=== PATIENT | male | born 1990 | race Two or more races ===

== ENCOUNTER 2019-04-26 13:40 | Emergency (ER) | payer MEDICAID, OTHER ==
[~2019-04-26] VITALS: Ht 165.1 cm; Wt 74.2 kg
[2019-04-26] MEDS ORDERED: ACETAMINOPHEN 325MG TABLET PO STA (15:52)
[2019-04-26] MEDS ORDERED: SODIUM CHLORIDE 0.9% 1,000 ML IV ONE (15:52)
[2019-04-26] MEDS ORDERED: ONDANSETRON 4MG ODT PO STA (15:52)
[2019-04-26] MEDS ORDERED: KETOROLAC 30MG/ML VIAL IV STA (15:52)
[2019-04-26 16:17] LABS: CHLORIDE 101 mEq/L (98-107)
[2019-04-26 16:19] LABS: HEMATOCRIT. 41.8 % (42.0-52.0); MEAN CORPUSCULAR HEMOGLOBIN 26.9 pg (28.0-32.0); MEAN PLATELET VOLUME 10.4 fl (7.4-10.4); PLATELET 178 x1000/uL (130-400); RED BLOOD CELL COUNT 5.22 mill/uL (4.7-6.1); RED CELL DISTRIBUTION WIDTH 14.8 % (11.6-14.6)
[2019-04-26 16:53] LABS: PLATELET ESTIMATE NORMAL
[2019-04-26 18:26] VITALS: BP 127/76
== END 2019-04-26 18:46 | disposition home or self-care (01) ==
LOC: ER 15:38
DX: J40 Bronchitis, not specified as acute or chronic (principal); R05 Cough; F12.10 Cannabis abuse, uncomplicated
CPT/HCPCS: 36415; 71046; 80053; 84484; 85025; 85379; 93005; 96374; 99284; J1885; J7030; Q0162; Z7610

== ENCOUNTER 2019-04-29 13:22 | Inpatient (IN) | payer OTHER ==
[~2019-04-29] VITALS: Ht 165.1 cm; Wt 70.8 kg
[2019-04-29] MEDS ORDERED: KETOROLAC 30MG/ML VIAL IV STA (15:47)
[2019-04-29] MEDS ORDERED: ONDANSETRON HCL 4MG/2ML INJ IV STA (15:47)
[2019-04-29] MEDS ORDERED: SODIUM CHLORIDE 0.9% 1,000 ML IV ONE (15:47)
[2019-04-29] MEDS ORDERED: MORPHINE SULFATE 4 MG/ML CPJ (NOT FOR IM USE) IV ONE (16:00)
[2019-04-29] MEDS ORDERED: LORAZEPAM 2MG/ML CPJ IV ONE (16:00)
[2019-04-29 16:25] LABS: HEMATOCRIT. 40.1 % (42.0-52.0); HEMOGLOBIN. 13.6 g/dL (14.0-18.0); MEAN CORPUSCULAR HEMOGLOBIN 26.9 pg (28.0-32.0); MEAN CORPUSCULAR VOLUME 79.4 fL (80.0-94.0); MEAN PLATELET VOLUME 9.1 fl (7.4-10.4); PLATELET 223 x1000/uL (130-400); RED BLOOD CELL COUNT 5.05 mill/uL (4.7-6.1); RED CELL DISTRIBUTION WIDTH 14.6 % (11.6-14.6)
[2019-04-29 16:28] LABS: CHLORIDE 97 mEq/L (98-107)
[2019-04-29] MEDS ORDERED: SODIUM CHLORIDE 0.9% 1000ML BAG (SEPSIS BOLUS) IV ONE (16:30)
[2019-04-29 16:31] LABS: INR 1.2; PROTHROMBIN TIME 12.1 sec (9.6-11.0)
[2019-04-29 16:32] LABS: ETHANOL BLOOD < 10 mg/dL
[2019-04-29 16:36] LABS: CREATINE KINASE 129 IU/L (39-308)
[2019-04-29 16:38] LABS: CREATINE KINASE MB FRACTION < 1.0 ng/mL (0.5-3.6)
[2019-04-29] MEDS ORDERED: LEVOFLOXACIN 500MG PREMIX 100 ML IV ONE (17:00)
[2019-04-29 17:05] LABS: CLARITY URINE CLEAR (CLEAR); COLOR URINE YELLOW (YELLOW); KETONES URINE 2+ (NEGATIVE); LEUKOCYTE ESTERASE URINE NEGATIVE (NEGATIVE); NITRITE URINE NEGATIVE (NEGATIVE); OCCULT BLOOD URINE 2+ (NEGATIVE); PROTEIN URINE 2+ (NEGATIVE); SPECIFIC GRAVITY URINE 1.015 (1.005-1.030); UROBILINOGEN URINE 0.2 E.U./dL (0.2-1.0)
[2019-04-29 17:09] LABS: PLATELET ESTIMATE NORMAL
[2019-04-29] MEDS ORDERED: VANCOMYCIN 1 G PREMIX 200 ML IV SCH (17:15)
[2019-04-29] MEDS ORDERED: OSELTAMIVIR 75MG CAPSULE PO ONE (17:30)
[2019-04-29 17:34] LABS: *AMPHETAMINES SCREEN URINE NEGATIVE (NEGATIVE); *BARBITURATES SCREEN URINE NEGATIVE (NEGATIVE); *BENZODIAZEPINES SCREEN URINE NEGATIVE (NEGATIVE); *COCAINE SCREEN URINE NEGATIVE (NEGATIVE); METHADONE URINE SCREEN NEGATIVE (NEGATIVE); OPIATES URINE SCREEN NEGATIVE (NEGATIVE)
[2019-04-29 17:35] LABS: CANNABINOID URINE SCREEN PRESUMTIVE POSITIVE (NEGATIVE); PHENCYCLIDINE URINE SCREEN NEGATIVE (NEGATIVE)
[2019-04-29 17:39] LABS: MONOTEST NEGATIVE (NEGATIVE)
[2019-04-29] MEDS ORDERED: IOHEXOL-350 100 ML BOTTLE ONE (18:51)
[2019-04-29 21:40] VITALS: BP 144/96
[2019-04-29] MEDS: ONDANSETRON HCL 4MG/2ML INJ IV PRN (23:01)
[2019-04-29] MEDS: ACETAMINOPHEN 325MG TABLET PO PRN (23:02)
[2019-04-29] MEDS ORDERED: GUAIFENESIN-DM 200MG-20MG/10ML UDC PO PRN (23:45)
[2019-04-30] VITALS: BP 130/90
[2019-04-30] MEDS: VANCOMYCIN 1500MG in DEXTROSE 5% WATER 250ML IV SCH ×2 (00:26→09:05)
[2019-04-30] MEDS: DEXT 5%/0.45% NACL KCL 20MEQ/L 1,000 ML IV SCH ×3 (00:26→16:09)
[2019-04-30] MEDS: HYDROCODONE/ACETAMINOPHEN 5/325MG TABLET PO PRN ×2 (00:46→09:19)
[2019-04-30] MEDS ORDERED: CEFTRIAXONE 1 G PREMIX 50 ML IV SCH (01:00)
[2019-04-30] MEDS: METRONIDAZOLE 500 MG PREMIX 100 ML IV SCH ×3 (02:53→18:33)
[2019-04-30 04:00] VITALS: BP 141/91
[2019-04-30] MEDS: ACETAMINOPHEN 325MG TABLET PO PRN ×3 (06:31→19:49)
[2019-04-30] MEDS: ONDANSETRON HCL 4MG/2ML INJ IV PRN ×2 (06:48→19:48)
[2019-04-30 06:55] LABS: CHLORIDE 103 mEq/L (98-107)
[2019-04-30 07:05] LABS: HEMATOCRIT. 37.2 % (42.0-52.0); HEMOGLOBIN. 12.4 g/dL (14.0-18.0); MEAN CORPUSCULAR VOLUME 80.9 fL (80.0-94.0); MEAN PLATELET VOLUME 8.9 fl (7.4-10.4); PLATELET 209 x1000/uL (130-400); RED BLOOD CELL COUNT 4.59 mill/uL (4.7-6.1); RED CELL DISTRIBUTION WIDTH 14.8 % (11.6-14.6)
[2019-04-30 07:39] VITALS: BP 122/82
[2019-04-30] MEDS: OSELTAMIVIR 75MG CAPSULE PO SCH ×2 (09:06→21:27)
[2019-04-30] MEDS: ONDANSETRON HCL 4MG/2ML INJ IV NR ×2 (11:13→15:59)
[2019-04-30 12:04] VITALS: BP 146/92
[2019-04-30 14:38] LABS: PLATELET ESTIMATE NORMAL
[2019-04-30] MEDS ORDERED: MORPHINE SULFATE 2 MG/ML CPJ (NOT FOR IM USE) IV NR (15:15)
[2019-04-30 16:16] VITALS: BP 132/86
[2019-04-30] MEDS: IPRATROPIUM/ALBUTEROL 0.5-3(2.5)MG/3ML NEB HHN PRN ×2 (18:14→20:04)
[2019-04-30 19:46] VITALS: BP 144/98
[2019-04-30] MEDS: VANCOMYCIN 1 G PREMIX 200 ML IV SCH (21:13)
[2019-05-01] VITALS: BP 131/95
[2019-05-01] MEDS: IPRATROPIUM/ALBUTEROL 0.5-3(2.5)MG/3ML NEB HHN PRN ×6 (00:06→21:23)
[2019-05-01] MEDS: HYDROCODONE/ACETAMINOPHEN 5/325MG TABLET PO PRN ×5 (00:41→20:37)
[2019-05-01] MEDS: METRONIDAZOLE 500 MG PREMIX 100 ML IV SCH ×3 (02:04→18:52)
[2019-05-01] MEDS: VANCOMYCIN 1 G PREMIX 200 ML IV SCH ×2 (03:04→08:22)
[2019-05-01] MEDS: CEFTRIAXONE 1 G PREMIX 50 ML IV SCH (03:04)
[2019-05-01 04:00] VITALS: BP 143/96
[2019-05-01] MEDS: ONDANSETRON HCL 4MG/2ML INJ IV PRN ×4 (05:14→20:37)
[2019-05-01 07:57] LABS: HEMATOCRIT. 34.5 % (42.0-52.0); HEMOGLOBIN. 11.7 g/dL (14.0-18.0); MEAN CORPUSCULAR VOLUME 79.3 fL (80.0-94.0); MEAN PLATELET VOLUME 8.5 fl (7.4-10.4); PLATELET 244 x1000/uL (130-400); RED BLOOD CELL COUNT 4.35 mill/uL (4.7-6.1); RED CELL DISTRIBUTION WIDTH 15.1 % (11.6-14.6)
[2019-05-01] MEDS: OSELTAMIVIR 75MG CAPSULE PO SCH ×2 (08:23→20:36)
[2019-05-01 08:28] VITALS: BP 140/94
[2019-05-01 09:20] LABS: PLATELET ESTIMATE NORMAL
[2019-05-01] MEDS: DEXT 5%/0.45% NACL KCL 20MEQ/L 1,000 ML IV SCH ×2 (09:38→18:49)
[2019-05-01 12:11] VITALS: BP 138/88
[2019-05-01] MEDS: METOCLOPRAMIDE HCL 10MG/2ML VIAL IV SCH ×3 (12:44→23:38)
[2019-05-01] MEDS: DOXYCYCLINE 100 MG in DEXT 5% WATER 100 ML IV SCH (16:00)
[2019-05-01 16:28] VITALS: BP 142/96
[2019-05-01 20:34] VITALS: BP 132/86
[2019-05-01] MEDS: ACETAMINOPHEN 325MG TABLET PO PRN (21:39)
[2019-05-01 22:31] LABS: BG BASE EXCESS 3.4 mmol/L (-2.0-2.0); BG CARBOXYHEMOGLOBIN 1.2 % (0.5-1.5); BG DEOXYHEMOGLOBIN 9.4 % (0.0-5.0); BG FRACTION INSPIRED OXYGEN 40; BG HCO3 ACT 27.5 mmol/L (22.0-26.0); BG METHEMOGLOBIN 0.2 % (0.0-1.5); BG OXYGEN SATURATION 90.5 % (92.0-98.5); BG OXYHEMOGLOBIN 89.2 % (94.0-97.0); BG PCO2 39.9 mmHg (35.0-45.0); BG PH 7.456 (7.350-7.450); BG PO2 58.3 mmHg (75.0-100.0); BG SAMPLE SITE RIGHT BRACHIAL; BG TOTAL HEMOGLOBIN 12.4 g/dL (12.0-18.0); BG VENT MODE NASAL CANNULA
[2019-05-02] VITALS (38 sets, daily range): BP systolic 48–184; BP diastolic 31–143
[2019-05-02] MEDS: DEXT 5%/0.45% NACL KCL 20MEQ/L 1,000 ML IV SCH ×2 (00:44→09:08)
[2019-05-02] MEDS: MORPHINE SULFATE 2 MG/ML CPJ (NOT FOR IM USE) IV PRN ×4 (00:44→15:40)
[2019-05-02] MEDS: CEFTRIAXONE 1 G PREMIX 50 ML IV SCH (00:45)
[2019-05-02] MEDS: IPRATROPIUM/ALBUTEROL 0.5-3(2.5)MG/3ML NEB HHN PRN ×4 (01:13→20:23)
[2019-05-02] MEDS: METRONIDAZOLE 500 MG PREMIX 100 ML IV SCH ×2 (01:35→09:53)
[2019-05-02] MEDS: DOXYCYCLINE 100 MG in DEXT 5% WATER 100 ML IV SCH ×2 (02:57→17:39)
[2019-05-02] MEDS: ONDANSETRON HCL 4MG/2ML INJ IV PRN ×2 (04:54→09:50)
[2019-05-02] MEDS: ACETAMINOPHEN 325MG TABLET PO PRN ×2 (05:30→11:48)
[2019-05-02] MEDS: METOCLOPRAMIDE HCL 10MG/2ML VIAL IV SCH ×3 (05:31→18:22)
[2019-05-02 07:20] LABS: HEMATOCRIT. 33.9 % (42.0-52.0); HEMOGLOBIN. 11.4 g/dL (14.0-18.0); MEAN CORPUSCULAR HEMOGLOBIN 26.6 pg (28.0-32.0); MEAN CORPUSCULAR VOLUME 79.2 fL (80.0-94.0); MEAN PLATELET VOLUME 8.9 fl (7.4-10.4); PLATELET 279 x1000/uL (130-400); RED BLOOD CELL COUNT 4.29 mill/uL (4.7-6.1); RED CELL DISTRIBUTION WIDTH 14.6 % (11.6-14.6)
[2019-05-02 08:20] LABS: CHLORIDE 97 mEq/L (98-107)
[2019-05-02] MEDS: OSELTAMIVIR 75MG CAPSULE PO SCH ×2 (09:08→21:00)
[2019-05-02] MEDS ORDERED: ACETAMINOPHEN 650MG SUPP PR PRN (13:15)
[2019-05-02] MEDS ORDERED: FUROSEMIDE 100MG/10ML VIAL IVP NR (13:30)
[2019-05-02 13:39] LABS: BG CARBOXYHEMOGLOBIN 0.6 % (0.5-1.5); BG DEOXYHEMOGLOBIN 1.4 % (0.0-5.0); BG FRACTION INSPIRED OXYGEN 100; BG HCO3 ACT 30.7 mmol/L (22.0-26.0); BG METHEMOGLOBIN 0.3 % (0.0-1.5); BG OXYGEN SATURATION 98.6 % (92.0-98.5); BG OXYHEMOGLOBIN 97.7 % (94.0-97.0); BG PCO2 44.9 mmHg (35.0-45.0); BG PH 7.453 (7.350-7.450); BG PO2 132.1 mmHg (75.0-100.0); BG SAMPLE SITE RIGHT BRACHIAL; BG TOTAL HEMOGLOBIN 12.8 g/dL (12.0-18.0); BG VENT MODE MASK - NRB
[2019-05-02] MEDS ORDERED: VECURONIUM BROMIDE 10 MG/VIAL IV ONE (14:08)
[2019-05-02] MEDS ORDERED: SODIUM CHLORIDE 0.9% 10ML VIAL ONE (14:08)
[2019-05-02] MEDS ORDERED: ETOMIDATE 2MG/ML 10ML VIAL IV ONE (14:08)
[2019-05-02 14:18] LABS: HEPATITIS B SURFACE ANTIGEN NEGATIVE
[2019-05-02] MEDS: PROPOFOL 10MG/ML 100ML 100 ML IV PRN ×3 (14:40→21:12)
[2019-05-02 14:42] LABS: HEPATITIS A AB IGM NEGATIVE (NEGATIVE)
[2019-05-02] MEDS ORDERED: HYDRALAZINE 20MG/ML VIAL IV PRN (15:00)
[2019-05-02 15:04] LABS: BG BASE EXCESS 4.7 mmol/L (-2.0-2.0); BG CARBOXYHEMOGLOBIN 0.1 % (0.5-1.5); BG DEOXYHEMOGLOBIN 0.7 % (0.0-5.0); BG FRACTION INSPIRED OXYGEN 100; BG HCO3 ACT 33.7 mmol/L (22.0-26.0); BG OXYGEN SATURATION 99.3 % (92.0-98.5); BG OXYHEMOGLOBIN 98.2 % (94.0-97.0); BG PCO2 71.1 mmHg (35.0-45.0); BG PH 7.293 (7.350-7.450); BG PO2 277.4 mmHg (75.0-100.0); BG SAMPLE SITE RIGHT RADIAL; BG TIDAL VOLUME(mL) 500 mL; BG TOTAL HEMOGLOBIN 14.2 g/dL (12.0-18.0); BG VENT MODE VENT - A/C; BG VENT RATE 14 set
[2019-05-02 15:46] LABS: PLATELET ESTIMATE NORMAL
[2019-05-02] MEDS: FENTANYL CITRATE/PF 500 MCG in SODIUM CHLORIDE 0.9% 40 ML IV PRN ×2 (15:57→18:13)
[2019-05-02] MEDS: PHENYLEPHRINE 10 MG in DEXT 5% WATER 249 ML IV PRN ×2 (17:30→20:02)
[2019-05-02] MEDS: LORAZEPAM 2MG/ML CPJ IV PRN (17:41)
[2019-05-02] MEDS: MEROPENEM 1,000 MG in SODIUM CHLORIDE 0.9% 100 ML IV SCH (20:19)
[2019-05-02] MEDS ORDERED: PHENYLEPHRINE 20 MG in DEXT 5% WATER 498 ML IV PRN (20:30)
[2019-05-03] VITALS (87 sets, daily range): BP systolic 74–117; BP diastolic 46–81
[2019-05-03] MEDS: IPRATROPIUM/ALBUTEROL 0.5-3(2.5)MG/3ML NEB HHN PRN ×5 (00:06→20:45)
[2019-05-03] MEDS: FENTANYL CITRATE/PF 500 MCG in SODIUM CHLORIDE 0.9% 40 ML IV PRN (00:25)
[2019-05-03] MEDS: MEROPENEM 1,000 MG in SODIUM CHLORIDE 0.9% 100 ML IV SCH ×3 (00:25→19:45)
[2019-05-03] MEDS: LORAZEPAM 2MG/ML CPJ IV PRN ×2 (00:26→07:23)
[2019-05-03] MEDS: METOCLOPRAMIDE HCL 10MG/2ML VIAL IV SCH ×5 (00:26→23:10)
[2019-05-03] MEDS: PROPOFOL 10MG/ML 100ML 100 ML IV PRN ×7 (00:50→23:10)
[2019-05-03] MEDS: PHENYLEPHRINE 40 MG in DEXT 5% WATER 496 ML IV PRN ×4 (01:26→14:06)
[2019-05-03] MEDS: DOXYCYCLINE 100 MG in DEXT 5% WATER 100 ML IV SCH ×2 (04:11→16:18)
[2019-05-03 05:13] LABS: HIV SCREEN 4G Non Reactive (Non Reactive)
[2019-05-03 05:36] LABS: HEMATOCRIT. 35.1 % (42.0-52.0); HEMOGLOBIN. 11.9 g/dL (14.0-18.0); MEAN CORPUSCULAR HEMOGLOBIN 26.8 pg (28.0-32.0); MEAN CORPUSCULAR VOLUME 79.3 fL (80.0-94.0); MEAN PLATELET VOLUME 9.1 fl (7.4-10.4); PLATELET 347 x1000/uL (130-400); RED BLOOD CELL COUNT 4.43 mill/uL (4.7-6.1)
[2019-05-03 05:48] LABS: CHLORIDE 96 mEq/L (98-107)
[2019-05-03] MEDS: FENTANYL CITRATE/PF 1,000 MCG in SODIUM CHLORIDE 0.9% 80 ML IV PRN ×2 (06:44→16:22)
[2019-05-03 07:04] LABS: PLATELET ESTIMATE NORMAL
[2019-05-03] MEDS: ACETAMINOPHEN 325MG TABLET PO PRN ×3 (07:35→22:29)
[2019-05-03 08:08] LABS: BG DEOXYHEMOGLOBIN 3.7 % (0.0-5.0); BG HCO3 ACT 32.8 mmol/L (22.0-26.0); BG METHEMOGLOBIN 0.2 % (0.0-1.5); BG OXYGEN SATURATION 96.3 % (92.0-98.5); BG OXYHEMOGLOBIN 96.1 % (94.0-97.0); BG PCO2 46.3 mmHg (35.0-45.0); BG PH 7.468 (7.350-7.450); BG PO2 85.4 mmHg (75.0-100.0); BG SAMPLE SITE RIGHT BRACHIAL; BG TIDAL VOLUME(mL) 500 mL; BG TOTAL HEMOGLOBIN 12.7 g/dL (12.0-18.0); BG VENT MODE VENT - A/C; BG VENT RATE 18 set
[2019-05-03] MEDS ORDERED: SODIUM CHLORIDE 0.9% 1000ML BAG (SEPSIS BOLUS) IV NR (08:30)
[2019-05-03] MEDS ORDERED: SODIUM CHLORIDE 0.9% 1,000 ML IV SCH (08:45)
[2019-05-03] MEDS: MIDODRINE HCL 5MG TABLET NG SCH ×3 (11:00→16:18)
[2019-05-03] MEDS: FAMOTIDINE 20MG/2ML VIAL IV SCH (11:01)
[2019-05-03] MEDS: ENOXAPARIN 40MG/0.4ML SYR SUBCUT SCH (11:01)
[2019-05-03] MEDS ORDERED: NOREPINEPHRINE 32 MG in DEXT 5% WATER 468 ML IV PRN (18:15)
[2019-05-04] VITALS (97 sets, daily range): BP systolic 86–142; BP diastolic 19–78
[2019-05-04] MEDS: MEROPENEM 1,000 MG in SODIUM CHLORIDE 0.9% 100 ML IV SCH ×3 (00:35→16:29)
[2019-05-04] MEDS: PHENYLEPHRINE 80 MG in DEXT 5% WATER 492 ML IV PRN ×2 (01:33→08:51)
[2019-05-04] MEDS: DOXYCYCLINE 100 MG in DEXT 5% WATER 100 ML IV SCH ×2 (03:05→15:07)
[2019-05-04] MEDS: PROPOFOL 10MG/ML 100ML 100 ML IV PRN ×6 (03:06→21:38)
[2019-05-04 05:16] LABS: HEMATOCRIT. 33.4 % (42.0-52.0); HEMOGLOBIN. 11.2 g/dL (14.0-18.0); MEAN CORPUSCULAR HEMOGLOBIN 26.5 pg (28.0-32.0); MEAN CORPUSCULAR VOLUME 78.7 fL (80.0-94.0); MEAN PLATELET VOLUME 8.5 fl (7.4-10.4); PLATELET 410 x1000/uL (130-400); RED BLOOD CELL COUNT 4.24 mill/uL (4.7-6.1)
[2019-05-04 05:32] LABS: CHLORIDE 100 mEq/L (98-107)
[2019-05-04] MEDS: METOCLOPRAMIDE HCL 10MG/2ML VIAL IV SCH ×3 (06:39→17:33)
[2019-05-04] MEDS: FENTANYL CITRATE/PF 1,000 MCG in SODIUM CHLORIDE 0.9% 80 ML IV PRN ×2 (06:40→21:29)
[2019-05-04] MEDS: ACETAMINOPHEN 325MG TABLET PO PRN ×3 (06:41→23:59)
[2019-05-04] MEDS: IPRATROPIUM/ALBUTEROL 0.5-3(2.5)MG/3ML NEB HHN PRN (08:33)
[2019-05-04 08:40] LABS: BG BASE EXCESS 6.6 mmol/L (-2.0-2.0); BG CARBOXYHEMOGLOBIN 0.3 % (0.5-1.5); BG DEOXYHEMOGLOBIN 3.4 % (0.0-5.0); BG FRACTION INSPIRED OXYGEN 40; BG HCO3 ACT 31.7 mmol/L (22.0-26.0); BG METHEMOGLOBIN 0.3 % (0.0-1.5); BG OXYGEN SATURATION 96.6 % (92.0-98.5); BG PCO2 47.4 mmHg (35.0-45.0); BG PH 7.443 (7.350-7.450); BG PO2 90.5 mmHg (75.0-100.0); BG SAMPLE SITE RIGHT RADIAL; BG TIDAL VOLUME(mL) 500 mL; BG TOTAL HEMOGLOBIN 11.6 g/dL (12.0-18.0); BG VENT MODE VENT - A/C; BG VENT RATE 16 set
[2019-05-04] MEDS: MIDODRINE HCL 5MG TABLET NG SCH ×3 (08:51→16:29)
[2019-05-04] MEDS: FAMOTIDINE 20MG/2ML VIAL IV SCH (08:51)
[2019-05-04] MEDS: ENOXAPARIN 40MG/0.4ML SYR SUBCUT SCH (08:52)
[2019-05-04] MEDS ORDERED: FUROSEMIDE 40MG/4ML VIAL IVP NR (13:00)
[2019-05-04 15:56] LABS: PLATELET ESTIMATE INCREASED
[2019-05-05] VITALS (73 sets, daily range): BP systolic 91–137; BP diastolic 31–91
[2019-05-05] MEDS: PROPOFOL 10MG/ML 100ML 100 ML IV PRN ×2 (01:19→04:33)
[2019-05-05] MEDS: DOXYCYCLINE 100 MG in DEXT 5% WATER 100 ML IV SCH ×2 (04:33→17:00)
[2019-05-05 05:42] LABS: HEMATOCRIT. 32.5 % (42.0-52.0); HEMOGLOBIN. 11.1 g/dL (14.0-18.0); MEAN CORPUSCULAR HEMOGLOBIN 26.6 pg (28.0-32.0); MEAN CORPUSCULAR VOLUME 78.3 fL (80.0-94.0); MEAN PLATELET VOLUME 8.4 fl (7.4-10.4); PLATELET 404 x1000/uL (130-400); RED BLOOD CELL COUNT 4.15 mill/uL (4.7-6.1); RED CELL DISTRIBUTION WIDTH 15.4 % (11.6-14.6)
[2019-05-05 05:43] LABS: CHLORIDE 98 mEq/L (98-107)
[2019-05-05 05:51] LABS: CREATINE KINASE 90 IU/L (39-308)
[2019-05-05] MEDS: ACETAMINOPHEN 325MG TABLET PO PRN ×3 (06:40→20:36)
[2019-05-05] MEDS: METOCLOPRAMIDE HCL 10MG/2ML VIAL IV SCH ×4 (06:40→17:14)
[2019-05-05 07:48] LABS: PLATELET ESTIMATE SLIGHTLY INCREASED
[2019-05-05 08:27] LABS: BG BASE EXCESS 14.9 mmol/L (-2.0-2.0); BG CARBOXYHEMOGLOBIN 0.3 % (0.5-1.5); BG DEOXYHEMOGLOBIN 2.6 % (0.0-5.0); BG FRACTION INSPIRED OXYGEN 40; BG METHEMOGLOBIN 0.3 % (0.0-1.5); BG OXYGEN SATURATION 97.4 % (92.0-98.5); BG OXYHEMOGLOBIN 96.8 % (94.0-97.0); BG PCO2 53.6 mmHg (35.0-45.0); BG PH 7.491 (7.350-7.450); BG PO2 115.5 mmHg (75.0-100.0); BG SAMPLE SITE RIGHT BRACHIAL; BG TIDAL VOLUME(mL) 500 mL; BG TOTAL HEMOGLOBIN 9.4 g/dL (12.0-18.0); BG VENT MODE VENT - A/C; BG VENT RATE 16 set
[2019-05-05] MEDS: FAMOTIDINE 20MG/2ML VIAL IV SCH (09:06)
[2019-05-05] MEDS: MIDODRINE HCL 5MG TABLET NG SCH ×3 (09:06→17:15)
[2019-05-05] MEDS: MEROPENEM 1,000 MG in SODIUM CHLORIDE 0.9% 100 ML IV SCH ×4 (09:06→17:15)
[2019-05-05] MEDS: ENOXAPARIN 40MG/0.4ML SYR SUBCUT SCH (09:06)
[2019-05-05 10:09] LABS: BG BASE EXCESS 8.3 mmol/L (-2.0-2.0); BG CARBOXYHEMOGLOBIN 0.4 % (0.5-1.5); BG DEOXYHEMOGLOBIN 4.4 % (0.0-5.0); BG FRACTION INSPIRED OXYGEN 40; BG HCO3 ACT 32.6 mmol/L (22.0-26.0); BG METHEMOGLOBIN 0.1 % (0.0-1.5); BG OXYGEN SATURATION 95.6 % (92.0-98.5); BG OXYHEMOGLOBIN 95.1 % (94.0-97.0); BG PCO2 44.1 mmHg (35.0-45.0); BG PH 7.487 (7.350-7.450); BG PO2 81.8 mmHg (75.0-100.0); BG PRESSURE SUPPORT 8; BG SAMPLE SITE RIGHT BRACHIAL; BG TOTAL HEMOGLOBIN 11.2 g/dL (12.0-18.0); BG VENT MODE VENT - CPAP
[2019-05-05] MEDS: IPRATROPIUM BROMIDE (0.02%) 0.5MG/2.5ML NEB HHN SCH ×3 (10:39→21:34)
[2019-05-05 10:58] LABS: CHLORIDE 97 mEq/L (98-107)
[2019-05-05] MEDS: MORPHINE SULFATE 2 MG/ML CPJ (NOT FOR IM USE) IV PRN (20:37)
[2019-05-06] VITALS (60 sets, daily range): BP systolic 106–140; BP diastolic 40–91
[2019-05-06] MEDS: METOCLOPRAMIDE HCL 10MG/2ML VIAL IV SCH ×2 (00:46→04:59)
[2019-05-06] MEDS: MEROPENEM 1,000 MG in SODIUM CHLORIDE 0.9% 100 ML IV SCH ×3 (00:46→16:42)
[2019-05-06] MEDS: MORPHINE SULFATE 2 MG/ML CPJ (NOT FOR IM USE) IV PRN ×4 (00:47→20:02)
[2019-05-06] MEDS: IPRATROPIUM BROMIDE (0.02%) 0.5MG/2.5ML NEB HHN SCH ×4 (02:40→21:10)
[2019-05-06] MEDS: DOXYCYCLINE 100 MG in DEXT 5% WATER 100 ML IV SCH ×2 (05:00→15:21)
[2019-05-06] MEDS: ACETAMINOPHEN 325MG TABLET PO PRN ×3 (05:02→22:06)
[2019-05-06 05:32] LABS: HEMATOCRIT. 32.3 % (42.0-52.0); HEMOGLOBIN. 11.1 g/dL (14.0-18.0); MEAN CORPUSCULAR HEMOGLOBIN 26.4 pg (28.0-32.0); MEAN CORPUSCULAR VOLUME 76.6 fL (80.0-94.0); MEAN PLATELET VOLUME 8.2 fl (7.4-10.4); PLATELET 472 x1000/uL (130-400); RED BLOOD CELL COUNT 4.21 mill/uL (4.7-6.1); RED CELL DISTRIBUTION WIDTH 14.4 % (11.6-14.6)
[2019-05-06 06:54] LABS: PLATELET ESTIMATE INCREASED
[2019-05-06] MEDS: ENOXAPARIN 40MG/0.4ML SYR SUBCUT SCH (08:37)
[2019-05-06] MEDS: FAMOTIDINE 20MG/2ML VIAL IV SCH (08:37)
[2019-05-06] MEDS: MIDODRINE HCL 5MG TABLET NG SCH ×3 (08:38→16:42)
[2019-05-06] MEDS ORDERED: FUROSEMIDE 40MG/4ML VIAL IVP NR (09:45)
[2019-05-06] MEDS ORDERED: POTASSIUM CHLORIDE 20MEQ TABLET SR PO SCH (10:00)
[2019-05-06] MEDS: DOCUSATE SODIUM 100MG CAPSULE PO SCH ×2 (13:48→16:42)
[2019-05-06] MEDS ORDERED: POTASSIUM CHLORIDE 20MEQ/PACKET PO NR (16:15)
[2019-05-06] MEDS: POTASSIUM CHLORIDE 8 MEQ TABLET.SA PO SCH (20:02)
[2019-05-07] VITALS (36 sets, daily range): BP systolic 102–144; BP diastolic 50–92
[2019-05-07] MEDS: MORPHINE SULFATE 2 MG/ML CPJ (NOT FOR IM USE) IV PRN ×5 (00:01→19:59)
[2019-05-07] MEDS: MEROPENEM 1,000 MG in SODIUM CHLORIDE 0.9% 100 ML IV SCH ×3 (00:01→21:52)
[2019-05-07] MEDS: ACETYLCYSTEINE 100MG/ML 10% VIAL 4ML INH SCH ×3 (02:10→15:15)
[2019-05-07] MEDS: IPRATROPIUM/ALBUTEROL 0.5-3(2.5)MG/3ML NEB HHN PRN (02:11)
[2019-05-07] MEDS: DOXYCYCLINE 100 MG in DEXT 5% WATER 100 ML IV SCH ×2 (04:50→20:05)
[2019-05-07 05:39] LABS: BASOPHILS % 0.3 % (0.0-2.0); EOSINOPHILS % 4.2 % (0.0-5.0); HEMATOCRIT. 34.7 % (42.0-52.0); LYMPHOCYTES % 10.6 % (20.0-50.0); MEAN CORPUSCULAR HEMOGLOBIN 26.9 pg (28.0-32.0); MEAN CORPUSCULAR VOLUME 77.6 fL (80.0-94.0); MEAN PLATELET VOLUME 8.3 fl (7.4-10.4); MONOCYTES % 7.6 % (2.0-8.0); NEUTROPHILS % 77.3 % (40.0-76.0); PLATELET 562 x1000/uL (130-400); RED BLOOD CELL COUNT 4.47 mill/uL (4.7-6.1)
[2019-05-07 05:48] LABS: CHLORIDE 100 mEq/L (98-107)
[2019-05-07 05:58] LABS: LDL CHOLESTEROL 100 mg/dL (5-100)
[2019-05-07 06:00] LABS: CREATINE KINASE MB FRACTION < 1.0 ng/mL (0.5-3.6)
[2019-05-07 06:01] LABS: HDL CHOLESTEROL 17 mg/dL (40-59)
[2019-05-07 06:11] LABS: CREATINE KINASE 67 IU/L (39-308)
[2019-05-07] MEDS: IPRATROPIUM BROMIDE (0.02%) 0.5MG/2.5ML NEB HHN SCH ×3 (08:51→21:00)
[2019-05-07] MEDS ORDERED: POTASSIUM CHLORIDE 20MEQ/PACKET PO SCH (09:00)
[2019-05-07] MEDS: MIDODRINE HCL 5MG TABLET NG SCH ×4 (09:00→17:00)
[2019-05-07] MEDS ORDERED: POTASSIUM CHLORIDE 20MEQ TABLET SR PO SCH (09:00)
[2019-05-07] MEDS ORDERED: FUROSEMIDE 40MG/4ML VIAL IVP SCH (09:00)
[2019-05-07] MEDS: POTASSIUM CHLORIDE 8 MEQ TABLET.SA PO SCH ×3 (09:01→17:50)
[2019-05-07] MEDS: FAMOTIDINE 20MG TABLET PO SCH (09:01)
[2019-05-07] MEDS: ENOXAPARIN 40MG/0.4ML SYR SUBCUT SCH (09:01)
[2019-05-07] MEDS: DOCUSATE SODIUM 100MG CAPSULE PO SCH ×2 (09:02→17:50)
[2019-05-07] MEDS: CARVEDILOL 3.125 MG TABLET PO SCH ×2 (13:01→21:52)
[2019-05-07 16:41] LABS: BASOPHILS % 0.5 % (0.0-2.0); EOSINOPHILS % 4.3 % (0.0-5.0); HEMATOCRIT. 35.8 % (42.0-52.0); HEMOGLOBIN. 12.4 g/dL (14.0-18.0); LYMPHOCYTES % 9.4 % (20.0-50.0); MEAN CORPUSCULAR HEMOGLOBIN 26.8 pg (28.0-32.0); MEAN CORPUSCULAR VOLUME 77.6 fL (80.0-94.0); MEAN PLATELET VOLUME 8.1 fl (7.4-10.4); MONOCYTES % 7.9 % (2.0-8.0); NEUTROPHILS % 77.9 % (40.0-76.0); PLATELET 598 x1000/uL (130-400); RED BLOOD CELL COUNT 4.61 mill/uL (4.7-6.1); RED CELL DISTRIBUTION WIDTH 14.9 % (11.6-14.6)
[2019-05-07 16:55] LABS: CHLORIDE 101 mEq/L (98-107)
[2019-05-08] VITALS (12 sets, daily range): BP systolic 104–131; BP diastolic 49–88
[2019-05-08] MEDS: ACETYLCYSTEINE 100MG/ML 10% VIAL 4ML INH SCH ×3 (01:50→15:56)
[2019-05-08] MEDS: IPRATROPIUM BROMIDE (0.02%) 0.5MG/2.5ML NEB HHN SCH ×4 (01:51→21:53)
[2019-05-08] MEDS: MEROPENEM 1,000 MG in SODIUM CHLORIDE 0.9% 100 ML IV SCH ×3 (03:20→17:24)
[2019-05-08] MEDS: MORPHINE SULFATE 2 MG/ML CPJ (NOT FOR IM USE) IV PRN ×3 (03:26→23:04)
[2019-05-08] MEDS: DOXYCYCLINE 100 MG in DEXT 5% WATER 100 ML IV SCH ×2 (05:46→18:46)
[2019-05-08 07:35] LABS: CHLORIDE 103 mEq/L (98-107)
[2019-05-08] MEDS: MIDODRINE HCL 5MG TABLET NG SCH (09:00)
[2019-05-08] MEDS: FAMOTIDINE 20MG TABLET PO SCH (09:45)
[2019-05-08] MEDS: FUROSEMIDE 40MG TABLET PO SCH (09:45)
[2019-05-08] MEDS: CARVEDILOL 3.125 MG TABLET PO SCH ×3 (09:45→22:00)
[2019-05-08] MEDS: ENOXAPARIN 40MG/0.4ML SYR SUBCUT SCH (09:45)
[2019-05-08] MEDS: DOCUSATE SODIUM 100MG CAPSULE PO SCH ×2 (09:45→17:24)
[2019-05-08] MEDS: POTASSIUM CHLORIDE 8 MEQ TABLET.SA PO SCH (09:45)
[2019-05-08] MEDS: SPIRONOLACTONE 25MG TABLET PO SCH (12:15)
[2019-05-08] MEDS ORDERED: DOXYCYCLINE 100 MG in DEXT 5% WATER 100 ML IV SCH ×2 (16:00→18:00)
[2019-05-08] MEDS: LOSARTAN POTASSIUM 25 MG TABLET PO SCH (17:24)
[2019-05-09] VITALS (13 sets, daily range): BP systolic 90–127; BP diastolic 55–78
[2019-05-09] MEDS: ACETYLCYSTEINE 100MG/ML 10% VIAL 4ML INH SCH ×3 (02:43→19:08)
[2019-05-09] MEDS: IPRATROPIUM BROMIDE (0.02%) 0.5MG/2.5ML NEB HHN SCH ×4 (02:44→21:17)
[2019-05-09] MEDS: DOXYCYCLINE 100 MG in DEXT 5% WATER 100 ML IV SCH (06:14)
[2019-05-09] MEDS: CARVEDILOL 3.125 MG TABLET PO SCH ×3 (06:23→22:59)
[2019-05-09 07:34] LABS: BASOPHILS % 0.8 % (0.0-2.0); EOSINOPHILS % 3.6 % (0.0-5.0); HEMATOCRIT. 36.8 % (42.0-52.0); HEMOGLOBIN. 12.6 g/dL (14.0-18.0); LYMPHOCYTES % 11.7 % (20.0-50.0); MEAN CORPUSCULAR HEMOGLOBIN 26.7 pg (28.0-32.0); MEAN CORPUSCULAR VOLUME 78.3 fL (80.0-94.0); MEAN PLATELET VOLUME 8.2 fl (7.4-10.4); MONOCYTES % 9.1 % (2.0-8.0); NEUTROPHILS % 74.8 % (40.0-76.0); PLATELET 682 x1000/uL (130-400); RED BLOOD CELL COUNT 4.71 mill/uL (4.7-6.1); RED CELL DISTRIBUTION WIDTH 14.9 % (11.6-14.6)
[2019-05-09 08:10] LABS: CHLORIDE 104 mEq/L (98-107)
[2019-05-09] MEDS: POTASSIUM CHLORIDE 8 MEQ TABLET.SA PO SCH (08:45)
[2019-05-09] MEDS: ENOXAPARIN 40MG/0.4ML SYR SUBCUT SCH (08:45)
[2019-05-09] MEDS: FUROSEMIDE 40MG TABLET PO SCH (08:45)
[2019-05-09] MEDS: LOSARTAN POTASSIUM 25 MG TABLET PO SCH (08:46)
[2019-05-09] MEDS: DOCUSATE SODIUM 100MG CAPSULE PO SCH ×2 (08:46→16:50)
[2019-05-09] MEDS: SPIRONOLACTONE 25MG TABLET PO SCH (08:46)
[2019-05-09] MEDS: FAMOTIDINE 20MG TABLET PO SCH ×2 (08:48→16:50)
[2019-05-09 17:11] LABS: HISTOPLASMA ABS QT DID Negative (Neg:<1:1)
[2019-05-09] MEDS: MORPHINE SULFATE 2 MG/ML CPJ (NOT FOR IM USE) IV PRN (22:20)
[2019-05-10] VITALS (7 sets, daily range): BP systolic 104–139; BP diastolic 45–98
[2019-05-10] MEDS: IPRATROPIUM BROMIDE (0.02%) 0.5MG/2.5ML NEB HHN SCH (01:24)
[2019-05-10] MEDS: ACETYLCYSTEINE 100MG/ML 10% VIAL 4ML INH SCH (01:24)
[2019-05-10] MEDS: CARVEDILOL 3.125 MG TABLET PO SCH (06:54)
[2019-05-10] MEDS: FUROSEMIDE 40MG TABLET PO SCH (08:27)
[2019-05-10] MEDS: DOCUSATE SODIUM 100MG CAPSULE PO SCH (08:27)
[2019-05-10] MEDS: ENOXAPARIN 40MG/0.4ML SYR SUBCUT SCH (08:28)
[2019-05-10] MEDS: FAMOTIDINE 20MG TABLET PO SCH (08:28)
[2019-05-10] MEDS: POTASSIUM CHLORIDE 8 MEQ TABLET.SA PO SCH (08:28)
[2019-05-10] MEDS: SPIRONOLACTONE 25MG TABLET PO SCH (08:28)
[2019-05-10 13:03] LABS: HEPATITIS B SURFACE ANTIGEN NEGATIVE
[2019-05-10 13:15] LABS: ANTI-MYELOPEROXIDASE AB < 9.0 U/mL (0.0-9.0); ANTI-NUCLEAR ANTIBODIES DIRECT Negative (Negative); ANTI-PROTEINASE 3 ABS < 3.5 U/mL (0.0-3.5); ATYPICAL P-ANCA <1:20 titer (Neg:<1:20); CYTOPLASMIC C-ANCA <1:20 titer (Neg:<1:20); PERINUCLEAR P-ANCA <1:20 titer (Neg:<1:20)
[2019-05-10 13:33] LABS: HEPATITIS A AB IGM NEGATIVE (NEGATIVE)
[2019-05-10 14:16] LABS: EBV VIRAL CAPSID AB IGM <36.0 U/mL (0.0-35.9)
[2019-05-13 08:09] LABS: BARBITURATE SCREEN Negative ug/mL (Cutoff:0.1); BENZODIAZEPINE SCREEN Negative ng/mL (Cutoff:20); OPIATES SCREEN ++POSITIVE++ ng/mL (Cutoff:5); PHENCYCLIDINE SCREEN Negative ng/mL (Cutoff:8)
== END 2019-05-10 13:50 | disposition home or self-care (01) | DRG 720 ==
LOC: ER 13:35 → 7WST 17:48 → EDBEDREQ 17:58 → ENRESERV 20:19 → MICUSO 05-02 13:46 → 3WST 05-07 12:43 → 5WST 05-10 11:20
PROVIDERS: ADMIT Internal Medicine Critical Care Medicine; ATTEND Internal Medicine Critical Care Medicine
PROC: 0BH17EZ Insertion of Endotracheal Airway into Trachea, Via Natural or Artificial Opening (ICD-10-PCS; principal; 2019-05-02)
PROC: 5A1945Z Respiratory Ventilation, 24-96 Consecutive Hours (ICD-10-PCS; 2019-05-02)
PROC: 02HV33Z Insertion of Infusion Device into Superior Vena Cava, Percutaneous Approach (ICD-10-PCS; 2019-05-03)
PROC: B548ZZA Ultrasonography of Superior Vena Cava, Guidance (ICD-10-PCS; 2019-05-03)
DX: A41.9 Sepsis, unspecified organism (principal); J96.00 Acute respiratory failure, unspecified whether with hypoxia or hypercapnia; R65.21 Severe sepsis with septic shock; J10.00 Influenza due to other identified influenza virus with unspecified type of pneumonia; I40.0 Infective myocarditis; I24.8 Other forms of acute ischemic heart disease; E44.0 Moderate protein-calorie malnutrition; E87.70 Fluid overload, unspecified; K52.9 Noninfective gastroenteritis and colitis, unspecified; I27.21 Secondary pulmonary arterial hypertension; E86.0 Dehydration; K75.81 Nonalcoholic steatohepatitis (NASH); K74.3 Primary biliary cirrhosis; D64.9 Anemia, unspecified; F12.90 Cannabis use, unspecified, uncomplicated; I10 Essential (primary) hypertension; I42.0 Dilated cardiomyopathy; R74.0 Nonspecific elevation of levels of transaminase and lactic acid dehydrogenase [LDH]; R79.82 Elevated C-reactive protein (CRP); Z68.26 Body mass index [BMI] 26.0-26.9, adult; Z87.81 Personal history of (healed) traumatic fracture; Z79.899 Other long term (current) drug therapy
CPT/HCPCS: 31500; 36415; 36600; 71045; 71275; 74174; 76700; 76937; 80048; 80061; 80076; 80202; 80305; 80307; 80320; 82248; 82375; 82550; 82553; 82805; 82962; 83520; 83605; 83735; 83880; 84145; 84443; 84478; 84484; 85651; 86038; 86140; 86256; 86308; 86635; 86645; 86664; 86665; 86698; 86705; 86709; 86803; 87045; 87070; 87340; 87389; 87493; 87804; 87899; 89055; 92610; 93005; 93306; 93970; 94002; 94003; 94640; 96374; 96375; 97162; 99285; C1725; J0696; J1650; J1885; J1940; J1956; J2060; J2185; J2270; J2370; J2405; J2704; J2765; J3010; J3370; J3490; J7030; J7040; J7050; J7060; J7608; J7620; Q9967; A4315; G0480

== ENCOUNTER 2019-06-08 07:59 | Emergency (ER) | payer MEDICAID, OTHER ==
[~2019-06-08] VITALS: Ht 165.1 cm; Wt 70.0 kg
[2019-06-08 08:14] VITALS: BP 124/87
== END 2019-06-08 09:28 | disposition home or self-care (01) ==
LOC: ER 07:59
DX: Z76.0 Encounter for issue of repeat prescription (principal)
CPT/HCPCS: 99283